=== PATIENT | female | born 1930 | race Caucasian/White ===

== ENCOUNTER 2018-07-19 21:10 | Inpatient (IN) | payer OTHER ==
[~2018-07-19] VITALS: Ht 172.7 cm; Wt 59.0 kg
[~2018-07-19 21:10] MED LIST: ALEN70; LEVSOD112; LOSARTAN-HCTZ1 EACH PO; METO50ER; Percocet 5-3251 EACH PO; VERA240ERB
[2018-07-20 00:32] LABS: BASOPHILS ABSOLUTE AUTO 0.04 K/mm3 (0.00-0.23); BASOPHILS PERCENT AUTO 0 % (0-2); EOSINOPHILS ABSOLUTE AUTO 0.04 K/mm3 (0.00-0.68); EOSINOPHILS PERCENT AUTO 0 % (0-6); Hemoglobin 11.4 g/dL (11.5-16.0); IMMATURE GRAN ABSOLUTE AUTO 0.07 K/mm3 (0.00-0.10); IMMATURE GRAN PERCENT AUTO 1 % (0-1); LYMPHOCYTES ABSOLUTE AUTO 0.62 K/mm3 (0.84-5.20); LYMPHOCYTES PERCENT AUTO 5 % (21-46); MONOCYTES ABSOLUTE AUTO 0.62 K/mm3 (0.16-1.47); MONOCYTES PERCENT AUTO 5 % (4-13); Mean Corpuscular HGB 27.9 pg (26.0-34.0); Mean Corpuscular HGB Conc 32.6 g/dL (31.5-36.5); Mean Corpuscular Volume 86 fL (80-100); Mean Platelet Volume 10.6 fL (9.1-12.4); NEUTROPHILS ABSOLUTE AUTO 12.05 K/mm3 (1.96-9.15); NEUTROPHILS PERCENT AUTO 90 % (41-73); Platelet Count 321 K/mm3 (150-400); RDW Coefficient Variation 14.2 % (11.7-14.2); RDW Standard Deviation 43.8 fL (35.1-46.3); Red Blood Cell Count 4.09 M/mm3 (3.80-5.20); White Blood Cell Count 13.44 K/mm3 (4.00-11.30)
--- NOTE | 2018-07-20 01:00 | NUR ---
RECEIVED HAND OFF FROM KAILASH ARMENDARIZ IN ER USING SBAR. TRANSPORTED TO ROOM VIA STRETCHER. TRANSFERED TO BED WITH FULL STAFF ASSISTANCE, TOLERATED WELL. AAO TO SELF ONLY. ORIENTED TO ROOM, CALL SYSTEM, AND POC, VOICES UNDERSTANDING. POSITIONED FOR COMFORT. RESPIRATIONS EVEN AND UNLABORED AT REST, WHEN HIP IS MOVED PT BECOMES TACHYPNIC. LUNG SOUNDS CLEAR BILATERALLY. ABDOMEN SOFT AND NONDISTENDED. BOWEL SOUNDS PRESENT IN ALL QUADS. STATES LAST BM WAS ON 07/19/18. STATES, "I HAVE A BOWEL MOVEMENT EVERY DAY." LEFT AC FIELD START PIV IS PATENT, FLUSHING WITH EASE. CONTUSION NOTED TO DAVID AREA. CONTINENT OF BOWEL AND BLADDER, WEARS DEPENDS PRECAUTION. 2+ EDEMA NOTED TO ANKLES BILATERALLY. ABLE TO WIGGLE TOES AND HAS FULL SENSATION TO LLE. WARM/DRY SKIN, AND GOOD DISTAL PULSES TO BLE. ADMISSION ASSESSMENT IN PROGRESS. SAFETY MEASURES IN PLACE. WILL CONTINUE TO MONITOR.
[2018-07-20 01:09] LABS: Anion Gap 11 mmol/L (6-16); Blood Urea Nitrogen 21 mg/dL (8-24); Bun/Creatinine Ratio 31.8 (12.0-20.0); CO2, Blood 24 mmol/L (21-32); Chloride, Blood 102 mmol/L (98-108); Creatinine, Blood 0.66 mg/dL (0.40-1.00); Glomerular Filtration Rate >60 (60-); Glucose, Blood 104 mg/dL (70-99); Potassium, Blood 3.4 mmol/L (3.5-5.5); Sodium, Blood 137 mmol/L (136-145)
[2018-07-20 01:10] LABS: Alanine Aminotransfer (ALT/SGP 26 U/L (12-78); Albumin, Blood 3.4 g/dL (3.4-5.0); Albumin/Globulin Ratio 0.9 (0.8-1.8); Alk Phos 94 U/L (50-136); Aspartate Aminotrans (AST/SGOT 30 U/L (12-37); Bilirubin, Total 0.5 mg/dL (0.1-1.0); Globulin, Blood 3.9 g/dL (2.2-4.0); Total Protein, Blood 7.3 g/dL (6.4-8.2)
--- NOTE | 2018-07-20 01:15 | NUR ---
MEDICATED FOR PAIN PER MD ORDERS, SAFETY MEASURES IN PLACE. WILL CONTINUE TO MONITOR.
[2018-07-20 02:52] LABS: Source, Urine Voided
[2018-07-20 02:54] LABS: Bilirubin, Urine Neg (Neg); Blood, Urine Neg (Neg); Glucose Qualitative, Urine Neg (Neg); Ketones, Urine 2+ (Neg); Leukocyte Esterase, Urine 1+ (Neg); Nitrite, Urine Pos (Neg); Protein, Urine Neg (Neg); Specific Gravity, Urine 1.005 (1.003-1.022); Urobilinogen, Urine NORM (Normal)
[2018-07-20 03:00] LABS: Appearance, Urine Clear (Clear); Color, Urine Yellow (P-Yellow)
[2018-07-20 03:01] LABS: Bacteria Many /hpf; Red Blood Cells, Urine 0-2 /hpf (0-2); Squamous Epithelial Cells Not Seen /hpf (Few)
--- NOTE | 2018-07-20 03:30 | NUR ---
NURSING ANSWERED BED ALARM, PT FOUND SITTING ON SIDE OF BED. 18G PIV FOUND IN BED NEXT TO HER. SHE STATES THAT SHE DOESN'T KNOW WHERE SHE IS AND THAT SHE SAW SOMEONE ELSE'S NAME ON SOMETHING, AND DEMANDS TO KNOW WHERE SHE IS. MULTIPLE ATTEMPTS TO REORIENT WERE UNSUCCESSFUL. READJUSTED IN BED FOR COMFORT. NEW 18G PIV PLACED TO RIGHT FA X1 ATTEMPT. GOOD BLOOD RETURN NOTED AND FLUSHES WITH EASE. IVF RESTARTED, TOLERATED WELL. SEVERAL MORE ATTEMPTS MADE TO REORIENT. VERBALIZES UNDERSTANDING. SAFETY MEASURES IN PLACE. WILL CONTINUE TO MONITOR.
--- NOTE | 2018-07-20 04:14 | NUR ---
RECEIVED CALL FROM [facility] NURSING ASKING FOR UPDATE ON PT STATUS. INFORMED THAT PT HAS BEEN HOSPITALIZED WITH FEMOR NECK FX. WILL CONTINUE TO MONITOR.
--- NOTE | 2018-07-20 05:04 | NUR ---
NO FURTHER CHANGES SINCE ADMISSION. PAIN WELL MANAGED WITH PRN PAIN MEDS. DENIES PAIN, DISCOMFORT, OR FURTHER NEEDS AT THIS TIME. SAFETY MEASURES IN PLACE. WILL CONTINUE TO MONITOR.
--- NOTE | 2018-07-20 06:50 | NUR ---
WHEN ENTERING ROOM TO GIVE SYNTHROID PER MD ORDERES, TO FOUND TO BE PULLING OFF HER GOWN, 18G PIV FOUND ON BEDSIDE TABLE WITH CATH TIP INTACT WITH FLUIDS STILL DRIPPING VIA PUMP. PT IS AGITATED AND BEGINS TO DEMAND TO BE TAKEN TO THE NEXT ROOM OVER, STATING, "THIS IS NOT MY ROOM, MY ROOM IS OVER THERE." WHILE POINTING TO THE HEAD OF THE BED. DIAPER FOUND TO HER RIGHT SIDE SHREDDED IN THE BED. MULTIPLE ATTEMPTS TO REORIENT ARE UNSUCCESSFUL. SYNTHROID GIVEN PER MD ORDERS. SAFETY MEASURES IN PLACE. WILL CONTINUE TO MONITOR.
[2018-07-20] MEDS ORDERED: AMLO10 PO (10:09)
[2018-07-20] MEDS ORDERED: DONE10 PO (10:10)
[2018-07-20 12:56] LABS: Hematocrit 35.8 % (33.0-51.0); Hemoglobin 12.2 g/dL (11.5-16.0); Mean Corpuscular HGB 28.1 pg (26.0-34.0); Mean Corpuscular HGB Conc 34.1 g/dL (31.5-36.5); Mean Platelet Volume 9.7 fL (9.1-12.4); Platelet Count 312 K/mm3 (150-400); RDW Coefficient Variation 14.2 % (11.7-14.2); RDW Standard Deviation 42.7 fL (35.1-46.3); Red Blood Cell Count 4.34 M/mm3 (3.80-5.20); White Blood Cell Count 11.05 K/mm3 (4.00-11.30)
[2018-07-20 13:03] LABS: Mean Corpuscular Volume 83 fL (80-100)
[2018-07-20 13:31] LABS: Alanine Aminotransfer (ALT/SGP 29 U/L (12-78); Albumin, Blood 3.5 g/dL (3.4-5.0); Albumin/Globulin Ratio 0.9 (0.8-1.8); Alk Phos 98 U/L (50-136); Anion Gap 12 mmol/L (6-16); Aspartate Aminotrans (AST/SGOT 39 U/L (12-37); Bilirubin, Total 0.7 mg/dL (0.1-1.0); Blood Urea Nitrogen 13 mg/dL (8-24); Bun/Creatinine Ratio 25.2 (12.0-20.0); CO2, Blood 23 mmol/L (21-32); Calcium, Blood 8.7 mg/dL (8.5-10.1); Chloride, Blood 102 mmol/L (98-108); Creatinine, Blood 0.52 mg/dL (0.40-1.00); Glomerular Filtration Rate >60 (60-); Glucose, Blood 123 mg/dL (70-99); Potassium, Blood 2.9 mmol/L (3.5-5.5); Sodium, Blood 137 mmol/L (136-145); Total Protein, Blood 7.5 g/dL (6.4-8.2)
--- NOTE | 2018-07-20 18:41 | NUR ---
SHIFT SUMMARY ALERT, PLEASANTLY CONFUSED TODAY, GRANDSON AT BEDSIDE GAVE PT COMFORT AND ASSISTED WITH ORIENTATION. NPO T/O SHIFT AWAITING L HIP REPAIR. PAIN MANAGED WITH 25 MCGS FENTANYL. 18G R ARM. VOIDING WELL, USING BEDPAN. WCTM & TX PER EMAR UNTIL REPORT GIVEN TO ONCOMING NOC RN.
--- NOTE | 2018-07-20 19:05 | NUR ---
recvd report from previous shift rn traci, pt confused, grandson in room with pt, bed in loweset position, bed alarm on, call light within reach
--- NOTE | 2018-07-20 19:20 | NUR ---
dr solis consulting with pt, sx intervention planned for tomorrow, pt will be npo after 0000
[2018-07-21 01:03] LABS: BASOPHILS ABSOLUTE AUTO 0.04 K/mm3 (0.00-0.23); BASOPHILS PERCENT AUTO 0 % (0-2); EOSINOPHILS ABSOLUTE AUTO 0.03 K/mm3 (0.00-0.68); EOSINOPHILS PERCENT AUTO 0 % (0-6); Hematocrit 35.6 % (33.0-51.0); Hemoglobin 11.9 g/dL (11.5-16.0); IMMATURE GRAN ABSOLUTE AUTO 0.03 K/mm3 (0.00-0.10); IMMATURE GRAN PERCENT AUTO 0 % (0-1); LYMPHOCYTES ABSOLUTE AUTO 0.69 K/mm3 (0.84-5.20); LYMPHOCYTES PERCENT AUTO 6 % (21-46); MONOCYTES ABSOLUTE AUTO 0.84 K/mm3 (0.16-1.47); MONOCYTES PERCENT AUTO 7 % (4-13); Mean Corpuscular HGB 27.7 pg (26.0-34.0); Mean Corpuscular HGB Conc 33.4 g/dL (31.5-36.5); Mean Corpuscular Volume 83 fL (80-100); Mean Platelet Volume 10.4 fL (9.1-12.4); NEUTROPHILS ABSOLUTE AUTO 9.92 K/mm3 (1.96-9.15); NEUTROPHILS PERCENT AUTO 86 % (41-73); Platelet Count 311 K/mm3 (150-400); RDW Coefficient Variation 14.6 % (11.7-14.2); RDW Standard Deviation 43.8 fL (35.1-46.3); Red Blood Cell Count 4.29 M/mm3 (3.80-5.20); White Blood Cell Count 11.55 K/mm3 (4.00-11.30)
--- NOTE | 2018-07-21 05:13 | NUR ---
shift summary: pt remained confused at baseline, reorients well but is aware of self, need reorientation for place/situation. pt's grandson remained at bedside t/0 shift. pt NPO since 0000 in preparation of surgical intervention, morning medication with sip. pt with low grade fever of 100, provided with cooling cloth, will report to ongoing shift RN. pt required faces scalem 3 prior to medication, sleeping and rousabl following medication per mar. pt with one loose stool and urine output >400 ml this shift.
--- NOTE | 2018-07-21 07:08 | NUR ---
REPORT FROM DANNY LINDER. ASSUMED PT CARE. PT RESTING IN BED WITH EYES OPEN. PT GRANDSON AT BEDSIDE.
--- NOTE | 2018-07-21 07:39 | NUR ---
PT MEDICATED WITH FENTANYL IV PER ORDERS. PT HAD SMALL LOOSE STOOL. PERICARE PROVIDED. NEW ATTENDS AND SANCHEZ PLACED. COFFEE PROVIDED TO PT GRANDSON.
--- NOTE | 2018-07-21 08:30 | NUR ---
PT RESTING COMFORTABLY. FAMILY AT BEDSIDE. NO NEEDS EXPRESSED.
--- NOTE | 2018-07-21 08:45 | NUR ---
DR MCCANN TO ROOM FOR EVAL.
--- NOTE | 2018-07-21 09:50 | NUR ---
PT RESTING IN POSITION OF COMFORT. EYES OPEN. GRANDSON AT BEDSIDE.
--- NOTE | 2018-07-21 10:35 | NUR ---
PT ASKS TO USE BEDPAN. ASSISTED WITH BEDPAN, PERICARE PROVIDED. PT GRANDSON NEEDS TO LEAVE TO TAKE CARE OF THINGS AT HOME. CONTACT INFO ON CHART. DOOR OPEN AND BEDALARM IN USE FOR PT SAFETY.
--- NOTE | 2018-07-21 11:16 | NUR ---
PT RESING AT THIS TIME. EYES CLOSED. RESP EVEN AND NON LABORED. PLAN FOR SURGICAL STAFF TO GET PT AT APPROX 1145.
--- NOTE | 2018-07-21 11:48 | NUR ---
GRANDSON RETURNED. PT TO OR. ATTEMPT TO REMOVE WEDDING BAND. UNABLE TO AT THIS TIME. OTHER JEWELRY REMOVED AND PLACED ON BEDSIDE STAND.
--- NOTE | 2018-07-21 15:15 | NUR ---
REPORT RECEIVED FROM PACU STAFF. EBL 150 IVF IN 1600 NO URINE OUT. COIL FORMER TO SCAN BLADDER PRIOR TO BRINGING PT TO FLOOR.
--- NOTE | 2018-07-21 15:36 | NUR ---
IN AND OUT CATH FOR BLADDER SCAN [id number]. CATH RETURNED 900ML YELLOW URINE. WENT FROM CLEAR TO CLOUDY. LOTS OF WHITE SEDIMENT IN CATH.SPECIMEN TO LAB FOR CULTURE. DAVID CARE DONE, STOOL NOTED ON RECTUM.
--- NOTE | 2018-07-21 15:48 | NUR ---
PT RETURNED TO ROOM FROM PACU. TXA DUE AT 1615. REFRIGERATION PLANT CORK INSULATOR DID AN IN AND OUT CATH AND DRAINED 900ML. SPECIMEN SENT TO LAB DUE TO LOOKING PUS LIKE.
--- NOTE | 2018-07-21 15:50 | NUR ---
VSS. PT PLACED ON 1L O2 FOR SATS THAT RANGE 89% - 91%. PT EBENEZER WELL. PT ANSWERS QUESTIONS. FOLLOW COMMANDS.
--- NOTE | 2018-07-21 16:20 | NUR ---
TXA DOSE TWO STARTED PER EMAR. PT RESTING . RESP EVEN AND NONLABORED. DENIES N/V.
[2018-07-21 18:36] LABS: Source, Urine Catheter
[2018-07-21 19:11] LABS: Bilirubin, Urine Neg (Neg); Blood, Urine 4+ (Neg); Glucose Qualitative, Urine Neg (Neg); Ketones, Urine Neg (Neg); Leukocyte Esterase, Urine 3+ (Neg); Nitrite, Urine Neg (Neg); Protein, Urine 3+ (Neg); Specific Gravity, Urine 1.015 (1.003-1.022); Urobilinogen, Urine NORM (Normal); pH, Urine 6.5 (5.0-8.0)
[2018-07-21 19:19] LABS: Appearance, Urine Cloudy (Clear); Color, Urine Yellow (P-Yellow)
[2018-07-21 19:20] LABS: Bacteria Many /hpf; Squamous Epithelial Cells Few /hpf (Few); White Blood Cells, Urine TNTC /hpf (0-5)
--- NOTE | 2018-07-22 05:58 | NUR ---
SHIFT SUMMARY PT IS POD 1 LEFT NASH HIP AFTER GLF. SHE DENIES PAIN T/O THE EVENING. ABLE TO REPOSITION WITH ASSISTANCE. HX OF DEMENTIA, CONFUSED AT BASELINE BUT ABLE TO MAKE NEEDS KNOWN. SHE WAS UNABLE TO VOID LAST NIGHT AND BLADDER SCAN THIS MORNING WAS OVER 400, STRAIGHT CATH'D FOR 525 OUT. SHE HAD NO URGE TO VOID. AQUACEL TO LEFT HIP C/D/I. SL. VSS, REMAINS W/ 99 TEMP. WILL CTM UNTIL PASS TO NEXT SHIFT.
--- NOTE | 2018-07-22 07:00 | NUR ---
REPORT RECEIVED FROM ROLAN LINDER. ASSUMED PT CARE. PT SITTING UP IN BED READING PAMPHLET.
--- NOTE | 2018-07-22 07:44 | NUR ---
ASSESSMENT CHARTED. PT SITTING UP IN BED. NADN. DENIES PAIN, DENIES NAUSEA. PT ANSWERS QUESTIONS APPROPRIATELY.
--- NOTE | 2018-07-22 08:28 | NUR ---
DR LOVE TO ROOM FOR [facility], DISCUSSED POSS DC PLAN WITH PT. PT UNDERSTOOD SOME. DISCUSSED UTI WITH PT AND THAT SHE WILL BE TREATED WITH ABX.
--- NOTE | 2018-07-22 08:50 | NUR ---
PT MEDICATED PER EMAR. OXY PROVIDED PRIOR TO THERAPY WORKING WITH PT. PT ATE ALL BREAKFAST AND IS DRINKING COFFEE.
--- NOTE | 2018-07-22 09:15 | NUR ---
PT MEDICATED WITH FIRST DOSE OF CEFTIN. EBENEZER WELL. PT SITTING UP IN BED.
--- NOTE | 2018-07-22 09:45 | NUR ---
MAGAZINES PROVIDED TO PT PER REQUEST. COFFEE PROVIDED. AWAITING PT.
--- NOTE | 2018-07-22 09:58 | NUR ---
THERAPY TO ROOM FOR EVAL.
--- NOTE | 2018-07-22 11:30 | NUR ---
pt sitting up in chair reading. nadn. denies pain.
--- NOTE | 2018-07-22 13:01 | NUR ---
PT SITTING UP IN CHAIR. NADN. DENIES NEEDS.
--- NOTE | 2018-07-22 13:01 | NUR ---
AWAITING HAMMON[facility] CT TO EVAL PT.
--- NOTE | 2018-07-22 16:35 | NUR ---
PT UP TO BSC.
--- NOTE | 2018-07-22 16:45 | NUR ---
PT BACK TO CHAIR. NO UOP. PT STATES SHE DOESNT FEEL LIKE SHE NEEDS TO URINATE. MULT BEVERAGES OFFERED. ACCEPTED APPLEJUICE.
--- NOTE | 2018-07-22 17:03 | NUR ---
PT MEDICATED WITH OXY PER EMAR. DRINKING APPLEJUICE.
--- NOTE | 2018-07-22 17:20 | NUR ---
PT PROVIDED DINNER TRAY. SITTING UP IN CHAIR. FREQUENTLY ASKS ABOUT GETTING DRESSED AND GOING HOME. PT REORIENTED.
--- NOTE | 2018-07-22 17:54 | NUR ---
DR GALLOWAY CALLED TO CHECK ON PT. UPDATED PROVIDER.
--- NOTE | 2018-07-22 18:53 | NUR ---
PT VERY CONFUSED, STATES THAT SHE IS IN THE WRONG ROOM AND DOESNT KNOW WHERE HER PAJAMAS ARE. ATTEMPT TO REORIENT PT. PT NOT REDIRECTABLE. DIFFICULT TO GET BACK TO BED. PT BACK TO BED WITH ASSISTANCE. BED ALARM IN USE. DISCUSSED BLADDER SCAN RESULTS WITH DR LOVE, ORDERS FOR INDWELLING CATH RECEIVED.
[2018-07-23 04:37] LABS: Hemoglobin 10.2 g/dL (11.5-16.0); Mean Corpuscular HGB 27.9 pg (26.0-34.0); Mean Corpuscular HGB Conc 32.9 g/dL (31.5-36.5); Mean Corpuscular Volume 85 fL (80-100); Mean Platelet Volume 10.1 fL (9.1-12.4); Platelet Count 249 K/mm3 (150-400); RDW Coefficient Variation 14.4 % (11.7-14.2); RDW Standard Deviation 44.5 fL (35.1-46.3); Red Blood Cell Count 3.65 M/mm3 (3.80-5.20); White Blood Cell Count 6.85 K/mm3 (4.00-11.30)
[2018-07-23 04:57] LABS: Bun/Creatinine Ratio 33.9 (12.0-20.0); Calcium, Blood 8.2 mg/dL (8.5-10.1); Creatinine, Blood 0.97 mg/dL (0.40-1.00); Potassium, Blood 3.7 mmol/L (3.5-5.5)
--- NOTE | 2018-07-23 07:10 | NUR ---
REPORT FROM WILSON LINDER. ASSUMED PT CARE. PT APPEARS TO BE RESTING. EYES CLOSED.
--- NOTE | 2018-07-23 07:29 | NUR ---
SHIFT SUMMARY PT IS POD 2 L HIP REPAIR. PT DENIED PAIN AND NARCOTICS HELD FOR CONFUSION. PT BECAME MORE AGITATED LATE IN THE NIGHT AND PULLED OFF HER ATTENDS, STAT LOCK, AND DRESSING, SO IT WAS CHANGED LAST NIGHT TWICE. STERN PLACED FOR RETENTION AND IT DRAINED WELL OVERNIGHT. SHE WILL NEED TO START BLADDER TRAINING BEFORE DISCHARGE. SHE HAD NO URGE TO VOID AT ALL BEFORE THE STERN WAS PLACED. NO FURTHER ACUTE CHANGES. REPORT PASSED TO ONCOMING SHIFT.
--- NOTE | 2018-07-23 08:00 | NUR ---
MICHAEL TONY AT BEDSIDE FOR BEDBATH AND TO GET PT UP. PT EBENEZER WELL.
--- NOTE | 2018-07-23 08:15 | NUR ---
PT SITTING IN HALLWAY EATING BREAKFAST. WILL MONITOR FOR SAFETY.
--- NOTE | 2018-07-23 09:15 | NUR ---
DR LOVE BY TO SEE PT. PLAN TO INITIATE BLADDER TRAINING. THIS RN TO JOAQUIN STERN.
--- NOTE | 2018-07-23 09:58 | NUR ---
PHYSICAL THERAPY WORKING WITH PT. PT USING WALKER TO AMB TO RR FOR POSS BM. CHAVO RODRIGUEZ ASSISTING. PLAN TO DC STERN AFTER THERAPY.
--- NOTE | 2018-07-23 11:01 | NUR ---
PT RESTING IN POSITION OF COMFORT IN BED. EYES CLOSED. RESP EVEN AND NONLABORED.
--- NOTE | 2018-07-23 11:04 | NUR ---
PER D/C COMPUTER FORENSICS INVESTIGATOR PT TO BE TX BACK TO [facility] AT APPROX NOON.
--- NOTE | 2018-07-23 11:30 | NUR ---
REPORT TO RAMAKRISHNA LINDER AT [facility].
--- NOTE | 2018-07-23 12:10 | NUR ---
TRANSPORT HERE FOR PT. WITH MICHAEL LORENZO HELP PT UP TO WC. BELONGINGS GATHERED.
--- NOTE | 2018-07-23 12:16 | NUR ---
PT TO [facility] VIA TX.
== END 2018-07-23 12:21 | disposition home or self-care (01) | DRG 470 ==
LOC: ER 21:10 → SURS 23:53
PROVIDERS: Emergency Medicine; Hospitalist; Internal Medicine; Orthopaedic Surgery; ADMIT Internal Medicine
PROC: 0SRS0JZ Replacement of Left Hip Joint, Femoral Surface with Synthetic Substitute, Open Approach (ICD-10-PCS; principal; 2018-07-21 12:30)
DX: S72.002A Fracture of unspecified part of neck of left femur, initial encounter for closed fracture (principal); N39.0 Urinary tract infection, site not specified; F03.90 Unspecified dementia, unspecified severity, without behavioral disturbance, psychotic disturbance, mood disturbance, and anxiety; I10 Essential (primary) hypertension; E03.9 Hypothyroidism, unspecified; W19.XXXA Unspecified fall, initial encounter; E87.6 Hypokalemia; B96.89 Other specified bacterial agents as the cause of diseases classified elsewhere; Z91.018 Allergy to other foods; Z79.899 Other long term (current) drug therapy
CPT/HCPCS: 36415; 71045; 72170; 73502; 80048; 80053; 81001; 84132; 85025; 85027; 87077; 87086; 87186; 88305; 88311; 93005; 93010; 97110; 97116; 97162; 97530; 99285-25; C1776; J0690; J1100; J1650; J1885; J2370; J2405; J3010; J3480; J7030; J7120

== ENCOUNTER 2018-10-05 14:25 | Inpatient (IN) | payer OTHER ==
[~2018-10-05] VITALS: Ht 172.7 cm; Wt 61.2 kg
[~2018-10-05 14:25] MED LIST changes: +AMLO10 PO; +DONE10 PO; -LEVSOD112; +LEVSOD112 PO
[2018-10-05 15:07] LABS: BASOPHILS ABSOLUTE AUTO 0.05 K/mm3 (0.00-0.23); BASOPHILS PERCENT AUTO 0 % (0-2); EOSINOPHILS ABSOLUTE AUTO 0.04 K/mm3 (0.00-0.68); EOSINOPHILS PERCENT AUTO 0 % (0-6); Hematocrit 33.9 % (33.0-51.0); Hemoglobin 10.7 g/dL (11.5-16.0); IMMATURE GRAN ABSOLUTE AUTO 0.04 K/mm3 (0.00-0.10); IMMATURE GRAN PERCENT AUTO 0 % (0-1); LYMPHOCYTES ABSOLUTE AUTO 0.56 K/mm3 (0.84-5.20); LYMPHOCYTES PERCENT AUTO 5 % (21-46); MONOCYTES ABSOLUTE AUTO 1.19 K/mm3 (0.16-1.47); MONOCYTES PERCENT AUTO 10 % (4-13); Mean Corpuscular HGB 26.4 pg (26.0-34.0); Mean Corpuscular HGB Conc 31.6 g/dL (31.5-36.5); Mean Corpuscular Volume 84 fL (80-100); Mean Platelet Volume 10.7 fL (9.1-12.4); NEUTROPHILS ABSOLUTE AUTO 10.45 K/mm3 (1.96-9.15); NEUTROPHILS PERCENT AUTO 85 % (41-73); Platelet Count 382 K/mm3 (150-400); RDW Coefficient Variation 14.3 % (11.7-14.2); RDW Standard Deviation 43.9 fL (35.1-46.3); Red Blood Cell Count 4.06 M/mm3 (3.80-5.20); White Blood Cell Count 12.33 K/mm3 (4.00-11.30)
[2018-10-05 15:20] LABS: Alanine Aminotransfer (ALT/SGP 27 U/L (12-78); Albumin, Blood 3.4 g/dL (3.4-5.0); Albumin/Globulin Ratio 0.8 (0.8-1.8); Alk Phos 114 U/L (50-136); Anion Gap 9 mmol/L (6-16); Aspartate Aminotrans (AST/SGOT 29 U/L (12-37); Bilirubin, Total 0.5 mg/dL (0.1-1.0); Blood Urea Nitrogen 14 mg/dL (8-24); Bun/Creatinine Ratio 27.1 (12.0-20.0); CO2, Blood 24 mmol/L (21-32); Calcium, Blood 8.3 mg/dL (8.5-10.1); Chloride, Blood 99 mmol/L (98-108); Creatinine, Blood 0.52 mg/dL (0.40-1.00); Globulin, Blood 4.2 g/dL (2.2-4.0); Glomerular Filtration Rate >60 (60-); Glucose, Blood 158 mg/dL (70-99); Sodium, Blood 132 mmol/L (136-145); Total Protein, Blood 7.6 g/dL (6.4-8.2); Troponin I <0.015 ng/mL (0.000-0.040)
[2018-10-05] MEDS ORDERED: CALCIUM 600 +1 EA11 PO (15:25)
[2018-10-05] MEDS ORDERED: Daily Multiple1 EACH PO (15:28)
[2018-10-05] MEDS ORDERED: ACET325 PO (15:28)
[2018-10-05] MEDS ORDERED: Gaviscon Extra355 ML PO (15:29)
[2018-10-05] MEDS ORDERED: Loperamide2 MG PO (15:30)
[2018-10-05] MEDS ORDERED: BISA10S PR (15:30)
[2018-10-05] MEDS ORDERED: Milk Of Ma400 MG/5 M PO (15:31)
[2018-10-05] MEDS ORDERED: Calmoseptine Oi71 GM TOP (15:33)
[2018-10-05 15:37] LABS: Free Thyroxine 1.16 ng/dL (0.70-1.60)
[2018-10-05 15:39] LABS: Thyroid Stimulating Hormone 3.63 uIU/mL (0.360-4.800)
--- NOTE | 2018-10-05 22:48 | NUR ---
PT ARRIVAL. PT ARRIVED ON UNIT VIA GURNEY, PT WAS PULLED OVER TO BED BY SLIDER SHEET. PT IS VERY SLEEPY BUT RESPONDS TO VERBAL STIMULI. PT WAS ADMITTED DUE TO [facility] POSSIBLE ASPRIATION PNA. PT IS CURRENTLY ON 2L NC AT 97%. PT DOES NOT USE O2 AT HOME. TELE WAS PLACED, NSR IN THE 60'S PER CUSTOMER SERVICE ANALYST, PT'S BP 119/67. L/S COARSE RHONCHI T/O. PT'S RR 18, EVEN AND UNLABORED AT THIS TIME. BT PRESENT AND HYPOACTIVE, ABD IS SOFT AND NONTENDER TO PALP. PT HAS SCABS/RASH ALL OVER HER LEGS AND THE TOPS OF HER FEET, PT APPEARS TO HAVE BEEN SCRATCHING THESE SCABS. PT IS UNABLE TO STATE WHEN THIS STARTED. CALL LIGHT IN REACH, BED IS LOCKED AND LOW WILL CONTINUE TO MONITOR.
[2018-10-06 04:11] LABS: BASOPHILS ABSOLUTE AUTO 0.01 K/mm3 (0.00-0.23); BASOPHILS PERCENT AUTO 0 % (0-2); EOSINOPHILS PERCENT AUTO 0 % (0-6); Hematocrit 29.4 % (33.0-51.0); Hemoglobin 9.2 g/dL (11.5-16.0); IMMATURE GRAN ABSOLUTE AUTO 0.04 K/mm3 (0.00-0.10); IMMATURE GRAN PERCENT AUTO 0 % (0-1); LYMPHOCYTES ABSOLUTE AUTO 0.42 K/mm3 (0.84-5.20); LYMPHOCYTES PERCENT AUTO 4 % (21-46); MONOCYTES ABSOLUTE AUTO 0.23 K/mm3 (0.16-1.47); MONOCYTES PERCENT AUTO 2 % (4-13); Mean Corpuscular HGB 26.4 pg (26.0-34.0); Mean Corpuscular HGB Conc 31.3 g/dL (31.5-36.5); Mean Corpuscular Volume 84 fL (80-100); Mean Platelet Volume 10.4 fL (9.1-12.4); NEUTROPHILS ABSOLUTE AUTO 10.45 K/mm3 (1.96-9.15); NEUTROPHILS PERCENT AUTO 94 % (41-73); Platelet Count 266 K/mm3 (150-400); RDW Coefficient Variation 14.6 % (11.7-14.2); RDW Standard Deviation 44.5 fL (35.1-46.3); Red Blood Cell Count 3.49 M/mm3 (3.80-5.20); White Blood Cell Count 11.15 K/mm3 (4.00-11.30)
[2018-10-06 04:36] LABS: Anion Gap 8 mmol/L (6-16); Blood Urea Nitrogen 10 mg/dL (8-24); Bun/Creatinine Ratio 22.5 (12.0-20.0); CO2, Blood 24 mmol/L (21-32); Chloride, Blood 107 mmol/L (98-108); Creatinine, Blood 0.44 mg/dL (0.40-1.00); Glomerular Filtration Rate >60 (60-); Glucose, Blood 139 mg/dL (70-99); Potassium, Blood 3.1 mmol/L (3.5-5.5); Sodium, Blood 139 mmol/L (136-145)
--- NOTE | 2018-10-06 05:26 | NUR ---
SHIFT SUMMARY. NO ACUTE CHANGES NOTED THIS SHIFT, VS HAVE BEEN STABLE. PT HAS SLEPT WELL MOST OF THIS SHIFT. PT WAS ABLE TO GET UP TO THE BSC AND VOID WITH 1 PERSON SBA. PT HAS NOT NEEDED THE BIPAP SINCE ADMIT TO THIS UNIT. PT HAS BEEN TITRATED FROM 3L NC TO 1L NC WITH O2 SATS AT 95%, WILL CONTINUE TO TITRATE PT TOLERATES. PT'S VS HAVE BEEN STABLE SINCE ADMIT. PT HAS BEEN CONFUSED AND VERY AXIOUS WHEN ASKED ABOUT LOVONOX SHOT ON ADMIT, THIS RN HELD THIS TO PREVENT FURTHER ANXIETY ABOUT ADMISSION. PT DENIES ANY CHEST PAIN/PRESSURE, N/V OR INCREASED SOB. CALL LIGHT IN REACH, BED IS LOCKED AND LOW WILL CONTINUE TO MONITOR UNTIL REPORT IS GIVEN TO ONCOMING RN.
--- NOTE | 2018-10-06 18:22 | NUR ---
SHIFT SUMMARY PT ALERT TO SELF AND DATE OF . PT CONFUSED TO SITUATION AND PLACE. PT HAS HX OF DEMENTIA AND PER DAUGHTER IS AT HER BASELINE MENTATION. VS STABLE. O2 SATS HAVE REMAINED ABOVE 90% ON RA. LUNG SOUNDS COARSE IN THE BASES. PT DENIES ANY PAIN. PT ABLE TO TRANSFER WITH SBA TO BATHROOM NEEDED. REPORT CALLED TO MEDICAL FLOOR RN. PT TAKEN UP BY WHEELCHAIR.
--- NOTE | 2018-10-07 04:24 | NUR ---
DRUM WORKER SUMMARY PT AAOX1, VERY CONFUSED AND IRRITABLE WITH CARE. IMPULSIVE AND DOES NOT USE CALL LIGHT FOR ASSISTANCE. BED ALARM ON FOR SAFETY. PT SETS OFF BED ALARM NUMEROUS TIMES THROUGH THE NIGHT. PT PULLED 2 IV'S FIRST PART OF THE SHIFT. NEW IV PLACED BY MEDICAL UNIT SECRETARY SO THAT PT COULD GET MIDNIGHT DOSE OF UNASYN. PT RECIEVED MOST OF DOSE OF UNASYN BEFORE SHE PULLED THE NEW IV OUT ALSO. SPOKE WITH DR OCASIO REGARDING PT CONFUSION AND PULLING ALL IV'S. DR OCASIO GAVE OK TO LEAVE IV OUT AT THIS TIME AND TO SWITCH PT TO PO AUGMENTIN BID. PT DENIES SOB BUT DOES GET WINDED AFTER AMBULATING. PT HAS SLEPT OFF AND ON THROUGH THE NIGHT AND USUALLY SETS OFF BED ALARM WHEN ATTEMPTING TO GET UP TO USE BATHROOM. PT IS A STANDBY ASSIST BUT IS UNSTEADY AT TIMES. PT VERY IRRITABLE AND RUDE TO STAFF WHEN ATTEMPTS TO REDIRECT ARE MADE. VSS, WILL CONTINUE TO MONITOR.
[2018-10-07 05:14] LABS: BASOPHILS ABSOLUTE AUTO 0.02 K/mm3 (0.00-0.23); BASOPHILS PERCENT AUTO 0 % (0-2); EOSINOPHILS ABSOLUTE AUTO 0.01 K/mm3 (0.00-0.68); EOSINOPHILS PERCENT AUTO 0 % (0-6); Hematocrit 29.6 % (33.0-51.0); Hemoglobin 9.7 g/dL (11.5-16.0); IMMATURE GRAN ABSOLUTE AUTO 0.06 K/mm3 (0.00-0.10); IMMATURE GRAN PERCENT AUTO 1 % (0-1); LYMPHOCYTES ABSOLUTE AUTO 0.67 K/mm3 (0.84-5.20); LYMPHOCYTES PERCENT AUTO 5 % (21-46); MONOCYTES ABSOLUTE AUTO 1.12 K/mm3 (0.16-1.47); MONOCYTES PERCENT AUTO 9 % (4-13); Mean Corpuscular HGB 26.9 pg (26.0-34.0); Mean Corpuscular HGB Conc 32.8 g/dL (31.5-36.5); Mean Corpuscular Volume 82 fL (80-100); Mean Platelet Volume 10.3 fL (9.1-12.4); NEUTROPHILS ABSOLUTE AUTO 11.28 K/mm3 (1.96-9.15); NEUTROPHILS PERCENT AUTO 86 % (41-73); Platelet Count 336 K/mm3 (150-400); RDW Coefficient Variation 14.5 % (11.7-14.2); RDW Standard Deviation 43.4 fL (35.1-46.3); Red Blood Cell Count 3.61 M/mm3 (3.80-5.20); White Blood Cell Count 13.16 K/mm3 (4.00-11.30)
[2018-10-07 05:45] LABS: Anion Gap 9 mmol/L (6-16); Blood Urea Nitrogen 16 mg/dL (8-24); Bun/Creatinine Ratio 30.2 (12.0-20.0); CO2, Blood 24 mmol/L (21-32); Calcium, Blood 7.7 mg/dL (8.5-10.1); Chloride, Blood 104 mmol/L (98-108); Creatinine, Blood 0.53 mg/dL (0.40-1.00); Glomerular Filtration Rate >60 (60-); Glucose, Blood 73 mg/dL (70-99); Potassium, Blood 3.2 mmol/L (3.5-5.5); Sodium, Blood 137 mmol/L (136-145)
[2018-10-07] MEDS ORDERED: Vsl#3 Capsule1 EACH PO (10:20)
[2018-10-07] MEDS ORDERED: POTCHL10ER PO (10:21)
[2018-10-07] MEDS ORDERED: DOCU100 PO (10:21)
[2018-10-07] MEDS ORDERED: Augmentin 875-1 EACH PO (10:22)
--- NOTE | 2018-10-07 10:41 | NUR ---
SUMMARY/DISCHARGE PT DISCHARGED BACK TO [facility], QUALITY SPECIALIST HAS BEEN IN CONTACT WITH THE FACILITY AND ORDERS HAVE BEEN FAXED, PT'S DAUGHTER HERE TO GET THE PT AND SHE HAS BEEN TAKEN OUT SAFELY VIA WHEELCHAIR
== END 2018-10-07 10:48 | disposition home or self-care (01) | DRG 871 ==
LOC: ER 14:25 → PCU 18:34 → ERHOLD 18:34 → MEDS 22:25 → PCU 22:48 → MEDS 10-06 18:26 → ENPENDDIS 10-07 09:19 → MEDS 10-07 10:48
PROVIDERS: Emergency Medicine; ADMIT Internal Medicine
PROC: 5A09357 Assistance with Respiratory Ventilation, Less than 24 Consecutive Hours, Continuous Positive Airway Pressure (ICD-10-PCS; principal; 2018-10-05)
DX: A41.9 Sepsis, unspecified organism (principal); J96.01 Acute respiratory failure with hypoxia; E44.0 Moderate protein-calorie malnutrition; E87.1 Hypo-osmolality and hyponatremia; R65.20 Severe sepsis without septic shock; E03.9 Hypothyroidism, unspecified; F03.90 Unspecified dementia, unspecified severity, without behavioral disturbance, psychotic disturbance, mood disturbance, and anxiety; I10 Essential (primary) hypertension; E87.6 Hypokalemia; J40 Bronchitis, not specified as acute or chronic; Z66 Do not resuscitate; Z68.20 Body mass index [BMI] 20.0-20.9, adult
CPT/HCPCS: 36415; 71045; 71260; 80048; 80053; 83605; 83880; 84439; 84443; 84484; 85025; 92610; 93005; 93010; 94640; 94660; 94762; 96361; 96365-59; 96375-59; 99285-25; J0295; J1650; J2930; J3480; J7030; J7040; Q9967

== ENCOUNTER 2019-03-29 07:39 | Emergency (ER) | payer OTHER ==
[~2019-03-29] VITALS: Ht 175.3 cm; Wt 56.7 kg
[~2019-03-29 07:39] MED LIST changes: +ACET325 PO; +Augmentin 875-1 EACH PO; +BISA10S PR; +CALCIUM 600 +1 EA11 PO; +Calmoseptine Oi71 GM TOP; +DOCU100 PO; +Daily Multiple1 EACH PO; +Gaviscon Extra355 ML PO; +Loperamide2 MG PO; +Milk Of Ma400 MG/5 M PO; +POTCHL10ER PO; +Vsl#3 Capsule1 EACH PO
[2019-03-29] MEDS ORDERED: EUCERIN ORIGIN250 ML TOP (08:37)
== END 2019-03-29 09:15 | disposition home or self-care (01) ==
LOC: ER 07:39
DX: R21 Rash and other nonspecific skin eruption (principal); Z85.3 Personal history of malignant neoplasm of breast; Z91.018 Allergy to other foods; Z79.899 Other long term (current) drug therapy
CPT/HCPCS: 99283

== ENCOUNTER 2019-09-06 14:08 | Observation (INO) | payer OTHER ==
[~2019-09-06] VITALS: Ht 162.6 cm; Wt 55.7 kg
[~2019-09-06 14:08] MED LIST changes: +EUCERIN ORIGIN250 ML TOP
[2019-09-06] MEDS ORDERED: AMLO10 PO (14:26)
[2019-09-06] MEDS ORDERED: LEVSOD112 PO (14:29)
[2019-09-06] MEDS ORDERED: DONEPEZIL HCL10 MG PO (14:29)
[2019-09-06] MEDS ORDERED: FERSU300 PO (14:29)
[2019-09-06] MEDS ORDERED: Calcium 600-D1 EACH PO (14:29)
[2019-09-06] MEDS ORDERED: Loperamide2 MG PO (14:30)
[2019-09-06] MEDS ORDERED: MULTI-VITAMIN1 EAC2 PO (14:30)
[2019-09-06 14:40] LABS: BASOPHILS PERCENT AUTO 1 % (0-2); EOSINOPHILS ABSOLUTE AUTO 0.48 K/mm3 (0.00-0.68); EOSINOPHILS PERCENT AUTO 7 % (0-6); Hemoglobin 9.6 g/dL (11.5-16.0); IMMATURE GRAN ABSOLUTE AUTO 0.03 K/mm3 (0.00-0.10); IMMATURE GRAN PERCENT AUTO 0 % (0-1); LYMPHOCYTES ABSOLUTE AUTO 1.12 K/mm3 (0.84-5.20); LYMPHOCYTES PERCENT AUTO 16 % (21-46); MONOCYTES ABSOLUTE AUTO 0.73 K/mm3 (0.16-1.47); MONOCYTES PERCENT AUTO 10 % (4-13); Mean Corpuscular Volume 73 fL (80-100); Mean Platelet Volume 10.8 fL (9.1-12.4); NEUTROPHILS ABSOLUTE AUTO 4.75 K/mm3 (1.96-9.15); NEUTROPHILS PERCENT AUTO 66 % (41-73); Platelet Count 382 K/mm3 (150-400); RDW Coefficient Variation 22.4 % (11.7-14.2); RDW Standard Deviation 58.3 fL (35.1-46.3); Red Blood Cell Count 4.37 M/mm3 (3.80-5.20); White Blood Cell Count 7.21 K/mm3 (4.00-11.30)
[2019-09-06 15:01] LABS: Alanine Aminotransfer (ALT/SGP 27 U/L (12-78); Albumin, Blood 3.3 g/dL (3.4-5.0); Albumin/Globulin Ratio 0.9 (0.8-1.8); Alk Phos 78 U/L (50-136); Anion Gap 6 mmol/L (6-16); Aspartate Aminotrans (AST/SGOT 21 U/L (12-37); Bilirubin, Total 0.3 mg/dL (0.1-1.0); Blood Urea Nitrogen 17 mg/dL (8-24); Bun/Creatinine Ratio 28.2 (12.0-20.0); CO2, Blood 25 mmol/L (21-32); Calcium, Blood 8.4 mg/dL (8.5-10.1); Chloride, Blood 108 mmol/L (98-108); Globulin, Blood 3.8 g/dL (2.2-4.0); Glomerular Filtration Rate >60 (60-); Glucose, Blood 139 mg/dL (70-99); Potassium, Blood 3.4 mmol/L (3.5-5.5); Sodium, Blood 139 mmol/L (136-145); Total Protein, Blood 7.1 g/dL (6.4-8.2)
--- NOTE | 2019-09-06 17:20 | NUR ---
Spoke with Dr Simons, Dr Spear, and Bedside RN Puma and discussed case. Plan is for Pt to be admitted and determine if Pt is surgical candidate for fracture. Pt resting on gurny upon arrival. Pt is A&Ox2, unable to verbalize appropriate reason for hospital stay and current year. Pt reports significant leg pain. PAINAD score 6/10 due to verbalized report, mild labored breathing and anxiety that appears to be related to pain. Reported Pt's pain to RN Puma. Called and spoke with Pt's daughter Alice. Engaged in therapeutic discussion regarding goals of care. Discussed POLST on file and confirmed with Alice Pt's wishes to be DNR and Comfort Measures Only. Discussed surgery to repair Pt's fracture if a candidate. Alice reports being agreeable to the surgery and can contribute towards comfort if candidate. Discussed potential rehabilitation options or lack of pending PT evaluation after surgery. Discussed potential implications if Pt is not rehab candidate for SNF with option of home health. Discussed potential implications of becoming bed bound if Pt does not rehab, with V/U made by Alice. Alice reports no other concerns and expresses appreciation of visit. Palliative Care will remain available for symptom management and support for family.
[2019-09-06] MEDS ORDERED: MILK OF MA400 MG/5 M (18:21)
[2019-09-06] MEDS ORDERED: Benadryl Itch28.3 G1 TOP (18:22)
--- NOTE | 2019-09-06 18:45 | NUR ---
UNABLE TO ASSESS COCCYX AT THIS TIME.
--- NOTE | 2019-09-06 19:13 | NUR ---
PT ARRIVED TO UNIT FROM ED ALERT AND ORIENTED TO SELF. RLE SHORTENED AND EXTERNALLY ROTATED. SCATTERED SCABS OVER BODY. BREAST APPEARS TO HAVE LARGE TUMORS. CALL LIGHT IN REACH AND BED ALARM ON.
[2019-09-06 19:29] LABS: International Normalized Ratio 0.98; Prothrombin Time Results 10.5 Sec (9.7-11.5)
[2019-09-06 19:37] LABS: Source, Urine Catheter
[2019-09-06 19:43] LABS: Bilirubin, Urine Neg (Neg); Blood, Urine 1+ (Neg); Glucose Qualitative, Urine Neg (Neg); Ketones, Urine Neg (Neg); Leukocyte Esterase, Urine 3+ (Neg); Nitrite, Urine Pos (Neg); Protein, Urine 1+ (Neg); Specific Gravity, Urine 1.015 (1.003-1.022); Urobilinogen, Urine NORM (Normal)
[2019-09-06 20:03] LABS: Appearance, Urine Hazy (Clear); Color, Urine Yellow (P-Yellow)
[2019-09-06 20:05] LABS: Bacteria Many /hpf; Squamous Epithelial Cells Not Seen /hpf (Few); White Blood Cells, Urine TNTC /hpf (0-5)
--- NOTE | 2019-09-07 03:48 | NUR ---
SHIFT SUMMARY PT CONFUSED T/O EVENING, IS ORIENTATED TO SELF WITH VSS. PT PULLED OUT IV AND REMOVED SEVERAL STATLOCKS. NEW ORDER FOR ZYPREXA OBTAINED, APPEARS LESS AGITATED AND COMPULSIVE. DR. RICO IN TO SEE PT, PLAN FOR CONSULT WITH FAMILY/POA TOMORROW. STERN PATENT AND DRAINING CLEAR YELLOW URINE. MEDICATED PER EMAR FOR PAIN, ICE APPLIED TO RIGHT HIP AND REPOSITIONED PT ALLOWED. PT APPEARS TO BE RESTING IN BED AT THIS TIME WITH BED IN LOWEST POSITION AND ALARM ON FOR SAFETY. WILL CONT TO MONITOR AND GIVE REPORT TO ONCOMING RN.
[2019-09-07 07:26] LABS: BASOPHILS ABSOLUTE AUTO 0.04 K/mm3 (0.00-0.23); BASOPHILS PERCENT AUTO 1 % (0-2); EOSINOPHILS ABSOLUTE AUTO 0.05 K/mm3 (0.00-0.68); EOSINOPHILS PERCENT AUTO 1 % (0-6); Hematocrit 26.7 % (33.0-51.0); Hemoglobin 8.1 g/dL (11.5-16.0); IMMATURE GRAN ABSOLUTE AUTO 0.02 K/mm3 (0.00-0.10); IMMATURE GRAN PERCENT AUTO 0 % (0-1); LYMPHOCYTES ABSOLUTE AUTO 0.54 K/mm3 (0.84-5.20); LYMPHOCYTES PERCENT AUTO 7 % (21-46); MONOCYTES ABSOLUTE AUTO 0.72 K/mm3 (0.16-1.47); MONOCYTES PERCENT AUTO 9 % (4-13); Mean Corpuscular HGB 21.7 pg (26.0-34.0); Mean Corpuscular HGB Conc 30.3 g/dL (31.5-36.5); Mean Corpuscular Volume 71 fL (80-100); Mean Platelet Volume 10.8 fL (9.1-12.4); NEUTROPHILS ABSOLUTE AUTO 6.88 K/mm3 (1.96-9.15); NEUTROPHILS PERCENT AUTO 84 % (41-73); Platelet Count 293 K/mm3 (150-400); RDW Standard Deviation 56.1 fL (35.1-46.3); Red Blood Cell Count 3.74 M/mm3 (3.80-5.20); White Blood Cell Count 8.25 K/mm3 (4.00-11.30)
[2019-09-07 07:52] LABS: Anion Gap 6 mmol/L (6-16); Blood Urea Nitrogen 13 mg/dL (8-24); Bun/Creatinine Ratio 25.4 (12.0-20.0); CO2, Blood 25 mmol/L (21-32); Chloride, Blood 110 mmol/L (98-108); Creatinine, Blood 0.51 mg/dL (0.40-1.00); Glomerular Filtration Rate >60 (60-); Glucose, Blood 108 mg/dL (70-99); Magnesium, Blood 1.9 mg/dL (1.6-2.4); Potassium, Blood 3.2 mmol/L (3.5-5.5); Sodium, Blood 141 mmol/L (136-145)
--- NOTE | 2019-09-07 17:31 | NUR ---
Pt resting in bed and is pleasantly confused. Pt A&OX1. Re-orientated Pt place, reason for hospitalization, and date. Within 30 seconds Pt states "I don't understand why I'm here, I'm a healthy person". Again re-orientated Pt to femur fracture. Pt appears comfortable with no S/S of distress at this time. Spoke with Bedside KAILASH Marshall and discussed case. Plan is for Dr Ingram to call daughter and discuss goals and risk factors. Palliative Care will remain available.
--- NOTE | 2019-09-07 17:33 | NUR ---
SUMMARY PT DENIES PAIN OTHER THAN WITH MOVEMENT. RIGHT LEG CONTINUES EXTERNALLY ROTATED, WARM AND PINK WITH PEDAL PULSES PRESENT. PT CONFUSED, COOPERATIVE. SPOKE WITH PATIENTS DAUGHTER, LU, TO UPDATE HER ON PATIENT STATES.
--- NOTE | 2019-09-08 05:40 | NUR ---
SHIFT SUMMARY: FRANCISCO IS ORIENTED TO PERSON. SHE APPEARS TO BE EXPERIENCING VISUAL HALLUCINATIONS, TALKING TO AND ABOUT PEOPLE WHO ARE NOT IN THE ROOM WELL REACHING FOR NONEXISTENT OBJECTS. SHE HAD DIFFICULTY SWALLOWING THE APAP ADMINISTERED FOR THE LOW GRADE FEVER. SHE WAS ABLE TO SWALLOW IT CRUSHED IN APPLESAUCE. SHE WAS FEEDING HERSELF DINNER LAST NIGHT WITHOUT ANY APPARENT DIFFICULTIES WHEN THIS NURSE CAME ON SHIFT. STERN IN PLACE DRAINING CLEAR, YELLOW URINE, STATLOC REPLACED AFTER PT PULLED. PT PULLED IV. PT PULLED ATTENDS. PT DOES NOT USE THE CALL LIGHT APPROPRIATELY. BED AND TAB ALARM ON FOR SAFETY. WILL REPORT TO DAY SHIFT RN.
--- NOTE | 2019-09-08 11:29 | NUR ---
SPOKE WITH PATIENT'S DTR VIA TELE RE: SURGERY. PATIENT AND DAUGHTER DECLINING SURGERY. DR GILL INFORMED. WILL CONT TO MONITOR.
--- NOTE | 2019-09-08 16:21 | NUR ---
Initial spiritual care note: Mrs. Harding appears frail and confused. She is calm and said little to me. She did not engage in conversation. She denied pain and appears well cared-for by nursing. I said a prayer for her at bedside. [employer] will remain available.
--- NOTE | 2019-09-08 16:42 | NUR ---
SHIFT SUMMARY PATIENT WITH GOOD APPETITE TODAY. C/O EXTREME PAIN WITH REPOSITIONING. NORCO / TAB ADMIN THIS AFTERNOON, PATIENT HAS RESTED QUIETLY W/O S/SX OF DISCOMFORT SINCE. CIRC CHECKS TO LE'S WNL. BED ALARM ON. CONT TO MONITOR. ANTICIPATE D/C BACK TO [facility].
--- NOTE | 2019-09-09 04:23 | NUR ---
SHIFT SUMMARY PT HAS BEEN CONFUSED DURING THE SHIFT. SHE HAS BEEN RESTING MOST OF THE SHIFT. PT REPOSITIONED MULT TIMES DURING THE NIGHT. PT APPEARS COMFORTABLE AT REST; PAIN WITH MOVEMENT. MEDICATED PRN PER ORDERS. SEE EMAR. STERN PATENT, STAT LOCK IN PLACE. PT APPEARS TO HAVE HAD SOME MILD VISUAL HALLUCINATIONS. MEDS GIVEN CRUSHED WITH APPLESAUCE, HOWEVER PT SEEMS TO STILL HAVE DIFFICULTY SWALLOWING APPLESAUCE. ASSISTED WITH ADL'S PRN.
[2019-09-09 08:27] LABS: Hematocrit 24.6 % (33.0-51.0); Hemoglobin 7.6 g/dL (11.5-16.0); Mean Corpuscular HGB 22.1 pg (26.0-34.0); Mean Corpuscular HGB Conc 30.9 g/dL (31.5-36.5); Mean Corpuscular Volume 72 fL (80-100); Mean Platelet Volume 10.2 fL (9.1-12.4); Platelet Count 292 K/mm3 (150-400); RDW Coefficient Variation 21.6 % (11.7-14.2); RDW Standard Deviation 55.8 fL (35.1-46.3); Red Blood Cell Count 3.44 M/mm3 (3.80-5.20); White Blood Cell Count 8.82 K/mm3 (4.00-11.30)
--- NOTE | 2019-09-09 08:30 | NUR ---
PATIENT AWAKENED FOR AM MEAL, "I CAN'T EAT NOW, I'M SLEEPING." WILL OFFER MEAL AND MEDS WHEN MORE AWAKE.
[2019-09-09 08:47] LABS: Albumin, Blood 2.3 g/dL (3.4-5.0); Anion Gap 6 mmol/L (6-16); Blood Urea Nitrogen 27 mg/dL (8-24); Bun/Creatinine Ratio 35.9 (12.0-20.0); CO2, Blood 26 mmol/L (21-32); Calcium, Blood 8.3 mg/dL (8.5-10.1); Chloride, Blood 108 mmol/L (98-108); Creatinine, Blood 0.75 mg/dL (0.40-1.00); Glomerular Filtration Rate >60 (60-); Glucose, Blood 104 mg/dL (70-99); Phosphorus, Blood 3.8 mg/dL (2.5-4.9); Potassium, Blood 3.6 mmol/L (3.5-5.5); Sodium, Blood 140 mmol/L (136-145)
--- NOTE | 2019-09-09 16:05 | NUR ---
SHIFT SUMMARY PATIENT HAS SLEPT INTERMITANTLY T/O SHIFT. APPETITE GOOD. FC PATENT, STAT LOCK IN PLACE. PATIENT D/C'D IV, SITE CLEAR. NO C/O PAIN, EXCEPT WITH REPOSITIONING. REMAINS CONFUSED, BUT COOPERATIVE WITH CARE. REPORT TO CN AT THIS TIME.
--- NOTE | 2019-09-10 04:50 | NUR ---
SHIFT SUMMARY: PT CONFUSED T/O SHIFT AND AGGITATED/IRRITABLE AT TIMES. ORIENTED TO SELF. 2 MODERATE ASSIST FOR BEDPAN. BM X1. STERN PATENT AND DRAINING YELLOW URINE. PLAN FOR IV ABX FOR UTI TODAY. PT MEDICATED WITH TYLENOL AND 25MG OF ULTRAM PER EMAR. TOLERATING PILLS CRUSHED IN APPLE SAUCE. AWAITING PLACEMENT TO [facility] DC ON THURSDAY.
--- NOTE | 2019-09-10 17:40 | NUR ---
SUMMARY: NO CHANGE TODAY. VSS, ALERT, ORIENTED X2. PT CONTINUES TO BE FORGETFUL AND IRRITABLE AT TIMES. HX OF DEMENTIA. CMS INTACT TO R LEG, FX IS NON SURGICAL. MEDICATED FOR PAIN PRN. STERN PATENT AND DRAINING. PLAN IS DC TO [facility] ON THURSDAY.
--- NOTE | 2019-09-11 04:57 | NUR ---
SHIFT SUMMARY LYING IN LOW FOWLERS WITH EYES CLOSED. HAD MULTIPLE SMALL CADENA BM'S THIS SHIFT. HAS BEEN MORE COOPERATIVE WITH CHANGING HER ATTENDS. HAS RESTED WELL AFTER BM'S. RIGHT LEG CONTINUES TO CAUSE PAIN, BUT REFUSES PAIN MEDS OFFERED. CALLED OUT FROM ROOM FOR HELP SEVERAL TIMES THROUGHOUT SHIFT, BUT HAS USED THE CALL HERNANDEZ AFTER BEING REORIENTED MULTIPLE TIMES. DENIES FURTHER NEEDS OR WANTS AT THIS TIME. SAFETY MEASURES IN PLACE. WILL GIVE HAND OFF TO ONCOMING SHIFT USING SBAR DURING BEDSIDE REPORT.
[2019-09-11 12:34] LABS: Hematocrit 27.6 % (33.0-51.0); Hemoglobin 8.5 g/dL (11.5-16.0)
--- NOTE | 2019-09-11 17:03 | NUR ---
SUMMARY: NO CHANGE TODAY. VSS, BASELINE CONFUSION. PT TURNED/CHANGED MULTIPLE TIMES THIS SHIFT, HAVING SOFT CADENA BM'S. STOOL SOFTNERS HELD THIS AM. SPOKE WITH DR. LOVE ABOUT [facility] DC, PLAN IS TO KEEP IN PLACE UPON DISCHARGE AT THIS TIME. DR. LOVING ALSO MADE AWARE OF PT ITCHING, NO NEW ORDERS. NO ACUTE CONCERNS, BED ALARM ON FOR WILLIE.
--- NOTE | 2019-09-12 04:46 | NUR ---
SHIFT SUMMARY LYING IN LOW FOWLERS WITH EYES CLOSED. HAD SEVERAL SMALL CADENA BM'S THIS SHIFT. HAS CONTINUED TO BE COOPERATIVE WITH CHANGING HER ATTENDS. RIGHT LEG CONTINUES TO CAUSE PAIN, BUT REFUSES PAIN MEDS OFFERED. CALLED OUT FROM ROOM FOR HELP, HAD DIAPER IN HAND WITH BM SMEARED ALL OVER HER LOWER BODY. GIVEN WARM SOAPY WASHCLOTHS AND SHE SCRUBBED HER BODY CLEAN. DENIES FURTHER NEEDS OR WANTS AT THIS TIME. SAFETY MEASURES IN PLACE. WILL GIVE HAND OFF TO ONCOMING SHIFT USING SBAR DURING BEDSIDE REPORT.
--- NOTE | 2019-09-12 11:54 | NUR ---
PT PICKED UP BY TRANSPORT TO BE TAKEN TO [address]. ALL PERSONAL BELONGINGS AND DISCHARGE PACKET SENT WITH TRANSPORT. DRIVE IN THEATER ATTENDANT UPDATED [address] ON PT STATUS AND ORDERS.
== END 2019-09-12 11:53 | disposition home or self-care (01) ==
LOC: ER 14:08 → SURS 14:09 → ER 16:59 → SURS 16:59
PROVIDERS: Emergency Medicine; Internal Medicine; ADMIT Internal Medicine
DX: S72.141A Displaced intertrochanteric fracture of right femur, initial encounter for closed fracture (principal); N39.0 Urinary tract infection, site not specified; F03.90 Unspecified dementia, unspecified severity, without behavioral disturbance, psychotic disturbance, mood disturbance, and anxiety; I10 Essential (primary) hypertension; E03.9 Hypothyroidism, unspecified; D64.9 Anemia, unspecified; E87.6 Hypokalemia; K90.0 Celiac disease; M81.0 Age-related osteoporosis without current pathological fracture; M19.90 Unspecified osteoarthritis, unspecified site; Z51.5 Encounter for palliative care; Z66 Do not resuscitate; Z79.899 Other long term (current) drug therapy; Z85.3 Personal history of malignant neoplasm of breast; Z88.8 Allergy status to other drugs, medicaments and biological substances; Z90.49 Acquired absence of other specified parts of digestive tract; Z91.018 Allergy to other foods; Z96.642 Presence of left artificial hip joint; W18.30XA Fall on same level, unspecified, initial encounter
CPT/HCPCS: 36415; 51702; 71045; 73110; 73502; 80048; 80053; 80069; 81001; 83735; 85014; 85018; 85025; 85027; 85610; 85730; 93005; 93010; 96365; 96372; 96374-59; 96375-59; 96376-59; 99285-25; A9270; A9270-GY; G0378; J0696; J1650; J2405; J3010; J3480